=== PATIENT | male | born 1995 | race Caucasian/White ===

== ENCOUNTER 2022-12-15 10:27 | Emergency (ER) | payer MEDICAID ==
[~2022-12-15] VITALS: Ht 177.8 cm; Wt 97.5 kg
[2022-12-15 10:49] VITALS: BP 127/84
[2022-12-15] MEDS ORDERED: TOPUD MT (11:14)
[2022-12-15] MEDS ORDERED: AMOX1TAB16 MT (11:14)
== END 2022-12-15 11:25 | disposition home or self-care (01) ==
LOC: ER 10:27
DX: K04.01 Reversible pulpitis (principal); Z98.890 Other specified postprocedural states
CPT/HCPCS: 99283

== ENCOUNTER 2022-12-24 17:25 | Emergency (ER) | payer MEDICAID ==
[~2022-12-24] VITALS: Ht 175.3 cm; Wt 97.5 kg
[~2022-12-24 17:25] MED LIST: AMOX1TAB16 MT; TOPUD MT
[2022-12-24] MEDS ORDERED: KETOROLAC 60MG/2ML VIAL IM ONE (20:00)
[2022-12-24 20:19] VITALS: BP 135/95
== END 2022-12-24 20:21 | disposition home or self-care (01) ==
LOC: ER 17:25
DX: K08.89 Other specified disorders of teeth and supporting structures (principal)
CPT/HCPCS: 96372; 99283; J1885; Z7610

== ENCOUNTER 2023-01-13 19:29 | Emergency (ER) | payer MEDICAID ==
[~2023-01-13] VITALS: Ht 172.7 cm; Wt 99.0 kg
[2023-01-13 19:34] VITALS: O2SAT 98
[2023-01-13] MEDS ORDERED: CEFTRIAXONE SODIUM 500 MG/VIAL IM ONE (22:00)
[2023-01-13] MEDS ORDERED: DOXYCYCLINE HYCLATE 100MG CAPSULE PO ONE (22:00)
[2023-01-13] MEDS ORDERED: KETOROLAC 30MG/ML VIAL IM ONE (22:00)
[2023-01-13 22:22] LABS: CLARITY URINE TURBID (CLEAR); COLOR URINE DARK YELLOW (YELLOW); KETONES URINE 2+ (NEGATIVE); LEUKOCYTE ESTERASE URINE TRACE (NEGATIVE); NITRITE URINE NEGATIVE (NEGATIVE); OCCULT BLOOD URINE 3+ (NEGATIVE); PROTEIN URINE 2+ (NEGATIVE); SPECIFIC GRAVITY URINE 1.035 (1.005-1.030)
[2023-01-13] MEDS ORDERED: IBUP-2029 MT (23:06)
[2023-01-13] MEDS ORDERED: DOXY100T28 MT (23:06)
[2023-01-13 23:21] VITALS: BP 126/69; PULSE 95; RESP 18; TEMP 98.1
[2023-01-17 04:09] LABS: HIV SCREEN 4G Non Reactive (Non Reactive)
[2023-01-21 04:07] LABS: NEISSERIA GONORRHOEAE NAA Negative (Negative)
== END 2023-01-13 23:22 | disposition home or self-care (01) ==
LOC: ER 19:29
DX: A64 Unspecified sexually transmitted disease (principal); K62.89 Other specified diseases of anus and rectum
CPT/HCPCS: 87491; 87591; 81003; 86592; 87389; 96372; 99284; J0696; J1885; Z7610